=== PATIENT | male | born 1965 | race Caucasian/White ===

== ENCOUNTER 2022-03-06 04:36 | Emergency (ER) | payer MEDICAID, OTHER ==
[~2022-03-06] VITALS: Ht 185.4 cm; Wt 100.4 kg
[2022-03-06] MEDS ORDERED: INSULIN REGULAR (HUMULIN R) UD 100 UNITS/ML SYR SUBCUT ONE (06:00)
[2022-03-06] MEDS ORDERED: SODIUM CHLORIDE 0.9% 1,000 ML IV ONE (06:00)
[2022-03-06] MEDS ORDERED: INSULIN REGULAR (HUMULIN R) 300UNITS/3ML VIAL SUBCUT NR (06:00)
[2022-03-06 06:18] LABS: BASOPHILS % 0.6 % (0.0-2.0); EOSINOPHILS % 2.8 % (0.0-5.0); HEMATOCRIT. 42.9 % (42.0-52.0); HEMOGLOBIN. 14.6 g/dL (14.0-18.0); LYMPHOCYTES % 39.9 % (20.0-50.0); MEAN CORPUSCULAR HEMOGLOBIN 30.8 pg (28.0-32.0); MEAN CORPUSCULAR VOLUME 90.8 fL (80.0-94.0); MONOCYTES % 8.4 % (2.0-8.0); NEUTROPHILS % 48.3 % (40.0-76.0); PLATELET 247 x1000/uL (130-400); RED BLOOD CELL COUNT 4.72 mill/uL (4.7-6.1)
[2022-03-06 06:24] LABS: CHLORIDE 98 mEq/L (98-107)
[2022-03-06 06:37] LABS: BETA HYDROXYBUTYRATE 0.2 mMol/L (0.0-0.3)
[2022-03-06 08:34] LABS: CLARITY URINE CLEAR (CLEAR); COLOR URINE YELLOW (YELLOW); KETONES URINE NEGATIVE (NEGATIVE); LEUKOCYTE ESTERASE URINE NEGATIVE (NEGATIVE); NITRITE URINE NEGATIVE (NEGATIVE); OCCULT BLOOD URINE NEGATIVE (NEGATIVE); PROTEIN URINE NEGATIVE (NEGATIVE); SPECIFIC GRAVITY URINE 1.042 (1.005-1.030); UROBILINOGEN URINE 0.2 E.U./dL (0.2-1.0)
[2022-03-06] MEDS ORDERED: METF-414 MT (09:34)
[2022-03-06] MEDS ORDERED: GABA300C MT (09:34)
[2022-03-06 10:42] VITALS: BP 125/84
[2022-03-06] MEDS ORDERED: OMEP20CA14 MT (11:38)
== END 2022-03-06 11:51 | disposition home or self-care (01) ==
LOC: ER 04:36
DX: E11.65 Type 2 diabetes mellitus with hyperglycemia (principal); I49.9 Cardiac arrhythmia, unspecified; Z91.013 Allergy to seafood; Z98.890 Other specified postprocedural states
CPT/HCPCS: 36415; 71045; 80053; 81003; 82010; 82962; 83690; 83880; 85025; 93005; 96360; 96372; 99285; J1815; J7030